=== PATIENT | female | born 1960 | race Caucasian/White ===

== ENCOUNTER 2017-09-13 15:09 | Emergency (ER) | payer MEDICAID ==
[2017-09-13 15:26] VITALS: BP 170/84
[2017-09-13] MEDS ORDERED: Lidocaine 1% with EPINEPHrine 1:100,000 50 ML MDV INFILT ONE (15:48)
[2017-09-13] MEDS ORDERED: Lidocaine 1% with EPINEPHrine 1:100,000 50 ML MDV ONE (15:49)
[2017-09-13] MEDS ORDERED: Silver Nitrate Applicator Each ONE (15:54)
[2017-09-13] MEDS ORDERED: Silver Nitrate Applicator Each TOP ONE (15:57)
[2017-09-13] MEDS ORDERED: Bacitracin Oint 1 GM U/D Packet TOP ONE (15:57)
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
== END 2017-09-13 16:04 | disposition home or self-care (01) ==
LOC: JP.ED 15:09
DX: S61.012A Laceration without foreign body of left thumb without damage to nail, initial encounter (principal); Z77.22 Contact with and (suspected) exposure to environmental tobacco smoke (acute) (chronic); W26.9XXA Contact with unspecified sharp object(s), initial encounter
CPT/HCPCS: 12001; 99282-25; 99283